=== PATIENT | female | born 1955 | race Caucasian/White ===

== ENCOUNTER → 2022-09-10 14:00 | Outpatient (CLI) | payer MEDICARE, SELFPAY ==
[2022-09-10 14:36] LABS: Add Manual Diff / Slide Review NO; Basophils Absolute Auto 100 /uL (0-100); Basophils Percent Auto 0.9 % (0-2); Eosinophils Absolute Auto 100 /uL (0-450); Hematocrit 40.3 % (36-46); Hemoglobin 13.6 g/dL (12.0-16.0); Lymphocytes Absolute Auto 1600 /uL (1100-4500); Lymphocytes Percent Auto 21.3 % (25-40); Mean Corpuscular HGB Conc 33.8 % (30-36); Mean Corpuscular Hemoglobin 30.7 PG (26-34); Mean Corpuscular Volume 90.9 fL (80-100); Monocytes Absolute Auto 600 /uL (0-900); Monocytes Percent Auto 8.4 % (3-14); Neutrophils Absolute Auto 5200 /uL (1500-7000); Neutrophils Percent Auto 68.4 % (50-75); Platelet Count 267 X10^3/uL (150-400); Red Blood Cell Count 4.43 X10^6/uL (4.0-5.2); Red Cell Distribution Width 12.6 % (11.6-14.8); White Blood Cell Count 7.7 X10^3/uL (4.5-11.0)
[2022-09-10 15:04] LABS: Alanine Aminotransferase 22 IU/L (<35); Albumin 4.2 g/dL (3.5-5.0); Albumin Globulin Ratio 1.4 (1.0-2.8); Alkaline Phosphatase 67 U/L (38-126); Aspartate Aminotransferase 24 IU/L (14-36); BUN Creatinine Ratio 35.3 (6-22); Bilirubin Total 0.4 mg/dL (0.2-1.3); Blood Urea Nitrogen 24 mg/dL (7-17); Calcium 8.8 mg/dL (8.4-10.2); Carbon Dioxide 29 mmol/L (22-32); Chloride 99 mmol/L (98-107); Estimated Glomerular Filt Rate > 60 mL/min (>60); Globulin 3.1 g/dL (1.7-4.1); Glucose 120 mg/dL (80-110); HEMOLYSIS < 15 (0-50); Potassium 4.2 mmol/L (3.4-5.1); Sodium 138 mmol/L (137-145); Total Protein 7.3 g/dL (6.3-8.2)
[2022-09-10 15:30] LABS: TSH w/ Reflex to FT4 1.48 uIU/mL (0.47-4.68)
[2022-09-10 15:51] LABS: Vitamin B12 247 pg/mL (239-931)
== END ==
PROVIDERS: Family Provider Orthopaedic Surgery; PCP Family Medicine; Referring Provider Family Medicine; Visit Provider Family Medicine
DX: F03.90 Unspecified dementia, unspecified severity, without behavioral disturbance, psychotic disturbance, mood disturbance, and anxiety (principal)
CPT/HCPCS: 36415; 80053; 82607; 84443; 85025

== ENCOUNTER → 2022-11-17 15:24 | Outpatient (CLI) | payer MEDICARE, SELFPAY ==
--- NOTE | 2022-11-17 15:27 | DI.RAD.S_ITS ---
PROCEDURE: XR KNEE LT 3V INDICATIONS: pain x 1 yr TECHNIQUE: 3 views of the knee were acquired. COMPARISON: None. FINDINGS: Bones: A chondroid lesion is present within the distal left femoral metadiaphysis. There is mild femorotibial joint space narrowing and small intercondylar osteophytes. Soft tissues: No joint effusion. No suspicious soft tissue calcifications. IMPRESSION: 1. Chondroid lesion within the distal left femur suspicious for an enchondroma. No prior comparisons are available to determine the acuity of this finding. In the setting of pain, further characterization with contrast enhanced MRI recommended. 2. Mild osteoarthritis of the left knee. Dictated by: Delmy Martinez M.D. on 11/17/2022 at 16:50 Approved by: Delmy Martinez M.D. on 11/17/2022 at 16:52
== END ==
PROVIDERS: Family Provider Orthopaedic Surgery; PCP Family Medicine; Referring Provider Family Medicine; Visit Provider Family Medicine
DX: M17.11 Unilateral primary osteoarthritis, right knee (principal); M25.562 Pain in left knee; M89.9 Disorder of bone, unspecified
CPT/HCPCS: 73562